=== PATIENT | male | born 1975 | race Caucasian/White ===

== ENCOUNTER 2018-03-13 02:44 | Emergency (ER) | payer OTHER ==
[~2018-03-13] VITALS: Ht 167.6 cm; Wt 81.6 kg
[2018-03-13 03:00] VITALS: BP 145/86
== END 2018-03-13 03:15 | disposition home or self-care (01) ==
LOC: ER 02:45
DX: H00.021 Hordeolum internum right upper eyelid (principal); W18.39XA Other fall on same level, initial encounter; Y93.89 Activity, other specified; Y92.89 Other specified places as the place of occurrence of the external cause; Y99.0 Civilian activity done for income or pay
CPT/HCPCS: 99283; A4606; Z7610

== ENCOUNTER 2019-04-22 04:22 | Emergency (ER) | payer OTHER ==
[~2019-04-22] VITALS: Ht 167.6 cm; Wt 79.4 kg
[2019-04-22 05:02] VITALS: BP 118/81
[2019-04-22] MEDS ORDERED: IBUPROFEN 400 MG TABLET ONE (06:46)
[2019-04-22] MEDS ORDERED: IBUPROFEN 400 MG TABLET PO ONE (07:00)
== END 2019-04-22 08:47 | disposition home or self-care (01) ==
LOC: ER 04:27
DX: M79.671 Pain in right foot (principal); F17.210 Nicotine dependence, cigarettes, uncomplicated
CPT/HCPCS: 73630-TC